=== PATIENT | male | born 1980 ===

== ENCOUNTER 2019-08-02 07:54 | Emergency (ER) | payer BC ==
--- NOTE | 2019-08-02 08:47 | EDM.PDOC ---
ED HPI GENERAL MEDICAL PROBLEM - General Stated Complaint: PAIN IN RIGHT ARM Time Seen by Provider: 08/02/19 08:36 Source of Information: Reports: Patient History Limitations: Reports: No Limitations - History of Present Illness INITIAL COMMENTS - FREE TEXT/NARRATIVE: Patient is a 39-year-old male who is complaining of having his right hand being swollen this morning without numbness paresthesias or change in warmth or color. Patient does sleep on his side but feels he always sleeps on his left side. Patient then started developing sharp pain that went up his arm several times this morning at which time he was feeling lightheaded. He denies any vertigo symptoms. All of his symptoms have improved or resolved with taking of ibuprofen up he feels that his hand swelling no improved is still present. He has never had similar symptoms in the past. He has chronic shoulder pain on that side and denies any increase in this or any shortness of breath or chest discomfort. Onset: Today Duration: Resolved Prior to Arrival Location: Reports: Upper Extremity, Right Quality: Reports: Sharp Severity: Mild Improves with: Reports: Medication Worsens with: Reports: None Associated Symptoms: Reports: No Other Symptoms Right Arm Pain Score (Numeric/FACES): 3 - Related Data Allergies Allergy/AdvReac Type Severity Reaction Status Date / Time oyster extract Allergy Vomiting Verified 08/02/19 09:04 Home Meds: Home Meds . [No Known Home Meds] 08/02/19 [History] ED ROS GENERAL - Review of Systems Review Of Systems: Comprehensive ROS is negative, except as noted in HPI. ED EXAM, DIZZINESS - Physical Exam Exam: See Below Exam Limited By: No Limitations General Appearance: Alert Head Exam: Atraumatic Neck: Normal Inspection, Supple, Non-Tender Respiratory/Chest: No Respiratory Distress, Lungs Clear, Normal Breath Sounds Cardiovascular: Normal Peripheral Pulses, Regular Rate, Rhythm Neurological: Alert, No Motor/Sensory Deficits Back Exam: Muscle Spasm Extremities: Normal Inspection, Non-Tender, Normal Capillary Refill. No: Joint Swelling, Increased Warmth, Mottled, Pallor, Redness Psychiatric: Normal Affect Skin Exam: Warm, Dry EKG INTERPRETATION EKG Date: 08/02/19 Rhythm: NSR P-Wave: Present QRS: Normal ST-T: Normal QT: Normal Course - Vital Signs Last Recorded V/S: Last Vital Signs Temp 36.8 C 08/02/19 09:05 Pulse 70 08/02/19 10:09 Resp 14 08/02/19 10:09 BP 153/99 H 08/02/19 10:46 Pulse Ox 95 08/02/19 10:09 - Orders/Labs/Meds Meds: Medications Discontinued Medications Generic Name Dose Route Start Last Admin Trade Name Chava PRN Reason Stop Dose Admin Lisinopril 10 mg 08/02/19 08:57 08/02/19 09:15 Prinivil PO 08/02/19 08:58 10 mg ONETIME ONE Administration Lisinopril 10 mg 08/02/19 10:12 08/02/19 10:46 Prinivil PO 08/02/19 10:13 10 mg ONETIME ONE Administration - Re-Assessments/Exams Free Text/Narrative Re-Assessment/Exam: 08/02/19 10:56 Patient's arm symptoms have almost completely resolved. Patient's blood pressure has been very elevated with a initial diastolic of 119. Given him 2 doses of lisinopril 10 mg each and now his diastolic blood pressure is 99. He is not complaining of any headache or chest pain symptoms. We will give him a referral to local PCP to recheck his pressure and adjust his meds and will give him a prescription for lisinopril. He is to return to emergency department if he is worse or his blood pressure becomes more elevated. Departure - Departure Time of Disposition: 08:53 Disposition: Home, Self-Care 01 Condition: Good Clinical Impression: Swelling of right hand, Hypertension - Discharge Information Instructions: Hypertension, [id number] Referrals: PCP,Not In Area [Primary Care Provider] - Additional Instructions: Return to ER symptoms are worse. Follow-up with PCP tomorrow if symptoms continue. Continue with ibuprofen. The following information is given to patients seen in the emergency department who are being discharged to home. This information is to outline your options for follow-up care. We provide all patients seen in our emergency department with a follow-up referral. The need for follow-up, as well as the timing and circumstances, are variable depending upon the specifics of your emergency department visit. If you don't have a primary care physician on staff, we will provide you with a referral. We always advise you to contact your personal physician following an emergency department visit to inform them of the circumstance of the visit and for follow-up with them and/or the need for any referrals to a consulting specialist. The emergency department will also refer you to a specialist when appropriate. This referral assures that you have the opportunity for follow-up care with a specialist. All of these measure are taken in an effort to provide you with optimal care, which includes your follow-up. Under all circumstances we always encourage you to contact your private physician who remains a resource for coordinating your care. When calling for follow-up care, please make the office aware that this follow-up is from your recent emergency room visit. If for any reason you are refused follow-up, please contact the [facility] at and asked to speak to the emergency department charge nurse. Sepsis Event Note - Focused Exam Vital Signs: Vital Signs Temp Pulse Resp BP BP Pulse Ox 08/02/19 10:46 153/99 H 08/02/19 10:09 70 14 180/100 H 95 08/02/19 09:16 73 16 178/118 H 97 08/02/19 09:15 178/118 H 08/02/19 09:05 36.8 C 71 18 177/107 H 95 08/02/19 09:04 177/123 H Date Exam was Performed: 08/02/19 Time Exam was Performed: 10:55
[2019-08-02] MEDS ORDERED: Lisinopril 10 MG Tab PO ONE ×2 (08:57→10:12)
== END 2019-08-02 11:46 | disposition home or self-care (01) ==
LOC: MW.ED 07:54
DX: R22.31 Localized swelling, mass and lump, right upper limb (principal); I10 Essential (primary) hypertension; Z91.013 Allergy to seafood
CPT/HCPCS: 93005; 99283; A9270